=== PATIENT | male | born 2000 | race Caucasian/White ===

== ENCOUNTER 2021-05-03 21:27 | Emergency (ER) | payer OTHER ==
[2021-05-03] MEDS ORDERED: IBUPROFEN800 MG PO (23:26)
[2021-05-03] MEDS ORDERED: ROBAXIN500 MG PO (23:26)
== END 2021-05-03 23:40 | disposition home or self-care (01) ==
LOC: FER 21:27
DX: S76.011A Strain of muscle, fascia and tendon of right hip, initial encounter (principal); S76.111A Strain of right quadriceps muscle, fascia and tendon, initial encounter; F17.210 Nicotine dependence, cigarettes, uncomplicated; W01.0XXA Fall on same level from slipping, tripping and stumbling without subsequent striking against object, initial encounter; Y92.89 Other specified places as the place of occurrence of the external cause
CPT/HCPCS: 73502; 73552; 73700; 96372; J1040; J1885